=== PATIENT | female | born 1940 | race Caucasian/White ===

== ENCOUNTER → 2016-11-16 | Outpatient (CLI) | payer MEDICARE ==
[~2016-11-16] MED LIST: ANTIVERT PO; ANTIVERT12.5 MG PO; ASPIRIN EC81 M1 PO; AUGMENTIN PO; COLACE PO; COREG PO; CRESTOR10 MG PO; HUMULIN N300 U/3 ML; HYZAAR 100-12.51 TAB PO; JANUVIA25 MG PO; LOSARTAN-HCTZ1 EAC2 PO; MILK OF MAGNESIA PO; MUCUS ER600 MG PO; NORVASC PO; [UNRECOGNIZED DRUG - OTHER]
[2016-11-16 11:45] LABS: ALBUMIN SERUM 3.7 g/dL (3.5-5.0); BILIRUBIN,TOTAL 0.5 mg/dL (0.2-2.0); CALCIUM SERUM 8.9 mg/dL (8.4-10.2); GLOM FILT RATE Estimated 55.1 mL/min (>60); POTASSIUM 4.1 mmol/L (3.5-5.1); PROTEIN TOTAL SERUM 6.5 g/dL (6.0-8.3)
[2016-11-17 14:57] LABS: MICROALB UR (PNL) 4.6 mg/dL (***)
== END | disposition home or self-care (01) ==
LOC: CLAB 09:04
PROVIDERS: Internal Medicine Endocrinology, Diabetes & Metabolism
DX: E04.2 Nontoxic multinodular goiter (principal); E11.65 Type 2 diabetes mellitus with hyperglycemia
CPT/HCPCS: 36415; 80053; 80061; 82043; 82570; 83036; 84443